=== PATIENT | male | born 1985 | race Caucasian/White ===

== ENCOUNTER 2020-08-01 02:54 | Emergency (ER) | payer OTHER ==
[~2020-08-01] VITALS: Ht 193 cm; Wt 113.4 kg
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
--- NOTE | 2020-08-01 03:05 | NUR ---
MD Chin in room to do MSE.
--- NOTE | 2020-08-01 03:30 | NUR ---
Patient agreed to give a urine sample. And also agreed to the CT scan.
[2020-08-01 03:44] LABS: *BILIRUBIN,URIN NEGATIVE (NEGATIVE); *BLOOD, URINE NEGATIVE (NEGATIVE); *CLARITY,URINE CLEAR (CLEAR); *KETONES,URINE NEGATIVE (NEGATIVE); *UROBILINOGEN,URINE 0.2 E.U./dl (NORMAL); LEUKOCYTE ESTERASE ,URINE NEGATIVE (NEGATIVE); NITRITE, URINE NEGATIVE (NEGATIVE); UGLUCOSE NEGATIVE (NEGATIVE)
--- NOTE | 2020-08-01 03:45 | NUR ---
Patient refused CT scan upon tech ed/woodshop teacher Matthew arrival.
[2020-08-01 03:50] LABS: *COLOR,URINE STRAW (YELLOW)
[2020-08-01 04:00] VITALS: BP 129/70
--- NOTE | 2020-08-01 04:00 | NUR ---
Patient discharged with [employer] unit [id number] in stable condition. Written and verbal after care instructions given. Medical clearance for booking given to [employer] unit [id number]. Patient verbalizes understanding of instructions. Stressed follow up or return to ER for worsening s/s. Patient ambulates with steady gait, V/S stable, left with all personal belongings.
== END 2020-08-01 04:00 ==
LOC: ER 02:58
DX: Z04.1 Encounter for examination and observation following transport accident (principal); E11.9 Type 2 diabetes mellitus without complications
CPT/HCPCS: A4663